=== PATIENT | female | born 1990 | race African-American/Black ===

== ENCOUNTER 2016-09-11 08:42 | Inpatient (IN) | payer OTHER ==
[~2016-09-11] VITALS: Ht 170.2 cm; Wt 98.9 kg
[~2016-09-11 08:42] MED LIST: LOMOTIL 0.025 M1 TAB PO
[2016-09-11 08:55] VITALS: BP 120/70
[2016-09-11 09:44] LABS: ABSOLUTE BASOPHIL COUNT 0 /CUMM (0.0-0.2); ABSOLUTE EOSINOPHIL COUNT 0.1 /CUMM (0.0-0.7); ABSOLUTE GRANULOCYTE CT 6.6 /CUMM (1.4-6.5); ABSOLUTE LYMPH COUNT 1.1 /CUMM (1.2-3.4); ABSOLUTE MONOCYTE COUNT 0.8 /CUMM (0.10-0.60); BASOPHIL % 0.1 % (0.0-2.0); EOSINOPHIL % 0.6 % (0-5); HEMATOCRIT 37.1 % (37-47); MEAN CORPUSCULAR HGB 30.2 PG (27.0-31.0); MEAN CORPUSCULAR HGB CONC 33.8 G/DL (33.0-37.0); MEAN CORPUSCULAR VOLUME 89.3 FL (81.0-99.0); MEAN PLATELET VOLUME 8.2 FL (7.4-10.4); PLATELET COUNT 311 /CUMM (130-400); RBC DISTRIBUTION WIDTH 13.9 % (11.5-14.5); RED BLOOD CELL CT 4.15 /CUMM (4.20-5.40); WHITE BLOOD CELL COUNT 8.5 /CUMM (4.8-10.8)
[2016-09-11 09:47] LABS: GRANULOCYTE % 77.3 % (42.2-75.2)
--- NOTE | 2016-09-11 17:47 | Labor & Delivery Summary ---
Delivery Summary Vaginal Delivery: Vaginal: vertex Episiotomy/Lacerations: Type: MIDLINE Repair: 30 Anesthesia: EPIDURAL Placenta: Placenta: spontanteous, normal, 3 vessel Anesthesia: block Additional Comments: MIDLINE EPISREPAIRED IN LAYERS .AFTER VACUUM ASSIST OF OP 2ND TO TO BRADYCARDIA AND POOR MATERNAL EFFORT
[2016-09-12 06:49] LABS: ABSOLUTE BASOPHIL COUNT 0 /CUMM (0.0-0.2); ABSOLUTE EOSINOPHIL COUNT 0 /CUMM (0.0-0.7); ABSOLUTE GRANULOCYTE CT 7.7 /CUMM (1.4-6.5); ABSOLUTE LYMPH COUNT 1.3 /CUMM (1.2-3.4); ABSOLUTE MONOCYTE COUNT 1.2 /CUMM (0.10-0.60); BASOPHIL % 0.4 % (0.0-2.0); EOSINOPHIL % 0.4 % (0-5); GRANULOCYTE % 75.4 % (42.2-75.2); HEMATOCRIT 36.7 % (37-47); MEAN CORPUSCULAR HGB 30.1 PG (27.0-31.0); MEAN CORPUSCULAR HGB CONC 32.9 G/DL (33.0-37.0); MEAN CORPUSCULAR VOLUME 91.3 FL (81.0-99.0); MEAN PLATELET VOLUME 7.9 FL (7.4-10.4); PLATELET COUNT 272 /CUMM (130-400); RBC DISTRIBUTION WIDTH 13.7 % (11.5-14.5); RED BLOOD CELL CT 4.01 /CUMM (4.20-5.40); WHITE BLOOD CELL COUNT 10.3 /CUMM (4.8-10.8)
--- NOTE | 2016-09-12 09:32 | PN- Post Delivery/GYN ---
Subjective Subjective: WANTS BREAST PUMP FOR HOME Objective Last 24 Hrs of Vital Signs/I&O PER CHART Physical Exam: PLEASANT BF IN NAD ABD SOFT NT FUNDUS FIRM NT LOCHIA MINIMAL EXT -EDEMA -HOMANS Assessment/Plan Assessment/Plan ASSESS S/PVACUUM ASSI PLAN CONT PPC SUPPORT BREAST FEEDING PUMP FORM
[2016-09-13] MEDS ORDERED: PERCOCET 5-3251 EACH PO (08:48)
[2016-09-13] MEDS ORDERED: IBUPROFEN800 M1 PO (08:48)
--- NOTE | 2016-09-13 08:50 | PN- Post Delivery/GYN ---
Subjective Subjective: No complaints Objective Last 24 Hrs of Vital Signs/I&O As per her paper chart Physical Exam: Well-developed black female HEENT anicteric Abdomen soft nontender Fundus firm nontender lochia minimal Extremities negative edema and negative Homans Assessment/Plan Assessment/Plan Assessment status post vacuum-assisted delivery plan follow up in my office in 6 weeks to return to return visit to continue vitamins and support breast-feeding
== END 2016-09-13 11:00 | DRG 775 ==
LOC: GNO 08:42
PROVIDERS: ADMIT Specialist
PROC: 10D07Z6 Extraction of Products of Conception, Vacuum, Via Natural or Artificial Opening (ICD-10-PCS; principal; 2016-09-11)
DX: O76 Abnormality in fetal heart rate and rhythm complicating labor and delivery (principal); O64.0XX0 Obstructed labor due to incomplete rotation of fetal head, not applicable or unspecified; Z3A.39 39 weeks gestation of pregnancy; Z37.0 Single live birth; O75.89 Other specified complications of labor and delivery
CPT/HCPCS: GNOS; 36415; 81001; 87086; J7120